=== PATIENT | female | born 1985 | race Caucasian/White ===

== ENCOUNTER 2022-04-03 05:30 | Inpatient (IN) | payer OTHER ==
[2022-04-03 19:37] VITALS: BMI 33.7
[2022-04-03] MEDS ORDERED: Promethazine HCl 25 MG/ML VIAL IM PRN (19:38)
[2022-04-03] MEDS ORDERED: Butorphanol Tartrate 1 MG/ML VIAL SLOW IVP PRN (19:38)
[2022-04-03] MEDS ORDERED: Methylergonovine 0.2 MG/ML VIAL IM PRN (19:38)
[2022-04-03] MEDS ORDERED: HYDROcodone/Acetaminophen 5/325 mg Tablet PO PRN ×2 (19:38)
[2022-04-03] MEDS ORDERED: Lidocaine 1% (PF) 30 ML VIAL SC PRN (19:38)
[2022-04-03] MEDS ORDERED: Ondansetron PF 4 MG/2 ML Vial IVP PRN (19:38)
[2022-04-03] MEDS ORDERED: Acetaminophen 500 MG TAB PO PRN (19:38)
[2022-04-03] MEDS ORDERED: Carboprost 250 MCG/ML AMP IM PRN (19:38)
[2022-04-03] MEDS ORDERED: Diphenoxylate HCl/Atropine Tablet PO PRN ×2 (19:38)
[2022-04-03] MEDS ORDERED: Misoprostol 200 MCG TAB PR PRN (19:38)
[2022-04-03] MEDS ORDERED: hydrALAZINE 20 MG/ML VIAL SLOW IVP PRN (19:38)
[2022-04-03] MEDS ORDERED: Ibuprofen 800 MG TAB PO PRN (19:38)
[2022-04-03] MEDS ORDERED: NS w/ Oxytocin 30 units 500 ML IV SCH ×2 (19:45)
[2022-04-03] MEDS ORDERED: Lactated Ringer's 1,000 ML IV SCH (19:45)
[2022-04-03] MEDS: Misoprostol 100 MCG TAB VAG SCH (20:24)
[2022-04-03 20:37] LABS: Hemoglobin 11.6 g/dL (12.0-15.5); Mean Corpuscular HGB CONC 34.5 g/dL (32.0-36.0); Mean Corpuscular Hemoglobin 30.2 pg (27.0-33.0); Mean Corpuscular Volume 87.5 fl (81.6-98.3); Mean Platelet Volume 11.6 fl (7.4-10.4); Platelet Count 140 10x3/uL (150-450); RBC Distribution Width 13.9 % (11.5-14.5); Red Blood Cell (RBC) Count 3.84 10x6/uL (3.90-5.03)
[2022-04-03 21:07] LABS: HBSAg Index 0.21 S/CO (0-0.99); Hep B Surf Ag Non-Reactive S/CO (NonReactive); Syphilis Antibody Nonreactive (Nonreactive); Syphilis Antibody Index 0.06 S/CO (<1.00 Non-Reactive)
[2022-04-03 21:53] LABS: SARS-CoV-2 NAA Rapid Test Not Detected (NotDetected)
[2022-04-04] MEDS: Misoprostol 100 MCG TAB VAG SCH ×4 (00:30→20:08)
[2022-04-04] MEDS ORDERED: Fentanyl 2 mcg/Bup 0.1% Cadd 100 ML ONE (03:07)
[2022-04-04] MEDS ORDERED: Acetaminophen 325 MG TAB PO PRN (03:42)
[2022-04-04] MEDS ORDERED: Promethazine HCl 25 MG/ML VIAL IM PRN (03:42)
[2022-04-04] MEDS ORDERED: diphenhydrAMINE 50 MG/ML VIAL IVP PRN (03:42)
[2022-04-04] MEDS ORDERED: ePHEDrine Sulfate 50 MG/10 ML VIAL SLOW IVP PRN (03:42)
[2022-04-04] MEDS ORDERED: Ondansetron PF 4 MG/2 ML Vial IVP PRN (03:42)
[2022-04-04] MEDS ORDERED: Moisturizing Cream (Eucerin) 113 GM JAR TOP PRN (03:42)
[2022-04-04] MEDS ORDERED: Lactated Ringer's 500 ML IV PRN (03:42)
[2022-04-04] MEDS ORDERED: Naloxone HCl 0.4 mg/ml Vial IVP PRN ×2 (03:42)
[2022-04-04] MEDS ORDERED: Communication Order-Pharmacy FS SCH (03:45)
[2022-04-04] MEDS ORDERED: diphenhydrAMINE 25 MG CAP PO PRN (05:56)
[2022-04-04] MEDS ORDERED: Preparation H Ointment 28 GM TUBE PR PRN (05:56)
[2022-04-04] MEDS ORDERED: hydrALAZINE 20 MG/ML VIAL SLOW IVP PRN (05:56)
[2022-04-04] MEDS ORDERED: Boostrix 0.5 ML (Tdap) VIAL (>/=7 yrs of age) IM ONE (05:56)
[2022-04-04] MEDS ORDERED: Benzocaine-Menthol 82.5 ML CAN TOP PRN (05:56)
[2022-04-04] MEDS ORDERED: Lanolin Ointment 7 GM TUBE TOP PRN (05:56)
[2022-04-04] MEDS ORDERED: Milk Of Magnesia 30 ML UDCUP PO PRN (05:57)
[2022-04-04] MEDS ORDERED: Bupivacaine 0.25% HCL 30 ML VIAL ONE (07:00)
[2022-04-04] MEDS: Prenatal Vitamin 1 TAB PO SCH (08:24)
[2022-04-04] MEDS: Docusate 100 MG CAP PO SCH ×2 (08:24→21:18)
[2022-04-04] MEDS: Ferrous Sulfate 325 MG TAB PO SCH ×2 (08:24→08:54)
[2022-04-04] MEDS: Milk Of Magnesia 30 ML UDCUP PO PRN (08:28)
[2022-04-04] MEDS: Ibuprofen 800 MG TAB PO SCH ×3 (08:54→21:18)
[2022-04-04] MEDS: traMADol HCl 50 MG TAB PO PRN ×2 (12:02→19:16)
[2022-04-05] MEDS: Ibuprofen 800 MG TAB PO SCH ×2 (05:44→13:29)
[2022-04-05 07:30] VITALS: BP 110/65; TEMP 97.8
[2022-04-05] MEDS: traMADol HCl 50 MG TAB PO PRN ×2 (07:45→13:33)
[2022-04-05] MEDS: Milk Of Magnesia 30 ML UDCUP PO PRN (07:45)
[2022-04-05] MEDS: Prenatal Vitamin 1 TAB PO SCH (07:45)
[2022-04-05] MEDS: Docusate 100 MG CAP PO SCH (07:45)
[2022-04-05] MEDS: Ferrous Sulfate 325 MG TAB PO SCH (08:37)
== END 2022-04-05 15:25 | disposition home or self-care (01) | DRG 768 ==
LOC: CSHLD 19:04 → CSHPED 04-04 08:00
PROVIDERS: ADMIT Obstetrics & Gynecology; ATTEND Obstetrics & Gynecology
PROC: 10E0XZZ Delivery of Products of Conception, External Approach (ICD-10-PCS; principal; 2022-04-04)
PROC: 0DQR0ZZ Repair Anal Sphincter, Open Approach (ICD-10-PCS; 2022-04-04)
DX: O69.81X0 Labor and delivery complicated by cord around neck, without compression, not applicable or unspecified (principal); Z37.0 Single live birth; O70.20 Third degree perineal laceration during delivery, unspecified; Z3A.39 39 weeks gestation of pregnancy; Z20.822 Contact with and (suspected) exposure to COVID-19; O69.2XX0 Labor and delivery complicated by other cord entanglement, with compression, not applicable or unspecified
CPT/HCPCS: 36415; 51702; 85027; 86780; 86850; 86900; 86901; 87340; J0595; J2001; J2590; S0020; U0002